=== PATIENT | female | born 1960 | race Asian ===

== ENCOUNTER 2016-11-05 11:59 | Emergency (ER) | payer BC, OTHER ==
[~2016-11-05] VITALS: Wt 75.0 kg
[~2016-11-05 11:59] MED LIST: LEVO100T87 PO
[2016-11-05] MEDS ORDERED: KETOROLAC 30 MG INJ IM STA (12:54)
[2016-11-05] MEDS ORDERED: DIAZEPAM 5 MG/ML SYG IM ONE (13:00)
[2016-11-05] MEDS ORDERED: morphine 10 MG INJ IM ONE (13:00)
--- NOTE | 2016-11-05 13:58 | RADRPT ---
PROCEDURE: XR Cervical Spine 3 Views. CLINICAL INDICATION: Neck pain and trauma TECHNIQUE: AP, lateral and odontoid views of the cervical spine were performed. The images were re viewed on a PACS workstation. COMPARISON: None. FINDINGS: Diffuse osteopenia is identified. Straightening of the normal lordosis is seen. No fractures or de structive bony lesions are observed. Moderate to severe intervertebral disk space narrowing is ident ified from C3-C6. Moderate intervertebral disk space narrowing is identified at C6-7. Facet arthro sis is noted from C6-T1. Facet joints are unremarkable. No prevertebral soft tissue thickening is observed. IMPRESSION: Osteopenia. Straightening of the normal lordosis. This could be positional in nature. Moderate to severe degenerative disk disease from C3-C6. Moderate degenerative disk disease at C6-7. Facet arthrosis in the lower cervical spine. If further characterization is needed CT or MRI could be helpful. RPTAT: AA .Mohinder Molina MD, Date Time Electronically viewed and signed by .Mohinder Molina MD, on 11/05/2016 13:58 .P/
[2016-11-05] MEDS ORDERED: HYDR-906 PO (14:02)
[2016-11-05] MEDS ORDERED: NAPR-688 PO (14:02)
[2016-11-05] MEDS ORDERED: METH500T PO (14:02)
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
== END 2016-11-05 14:58 | disposition home or self-care (01) ==
LOC: FTE 11:59
DX: S16.1XXA Strain of muscle, fascia and tendon at neck level, initial encounter (principal); M51.36 Other intervertebral disc degeneration, lumbar region; M62.838 Other muscle spasm; E03.9 Hypothyroidism, unspecified; V49.50XA Passenger injured in collision with unspecified motor vehicles in traffic accident, initial encounter
CPT/HCPCS: 72040; 96372; 99284; J1885; J2270; J3360